=== PATIENT | female | born 1985 | race Caucasian/White ===

== ENCOUNTER 2019-11-27 15:15 | Outpatient (CLI) | payer OTHER, SELFPAY ==
[2019-12-02 04:30] LABS: FSH 2.6 mIU/mL (***); LH 3.2 mIU/mL (***); Progesterone 5.5 ng/mL (***)
== END 2019-11-27 15:16 | disposition home or self-care (01) ==
PROVIDERS: PCP Family Medicine; Visit Provider Obstetrics & Gynecology
DX: N92.6 Irregular menstruation, unspecified (principal)
CPT/HCPCS: 36415; 83001; 83002; 84144

== ENCOUNTER 2019-12-20 17:13 | Emergency (ER) | payer OTHER, SELFPAY ==
--- NOTE | ~2019-12-20 | XR_ITS ---
EXAMINATION: XR chest 1V portable INDICATION: Cough and headache, COVID 19 TECHNIQUE: Portable AP chest at 1741 hours COMPARISON: 05/25/2015 FINDINGS: The lungs are free of acute opacities. There is no pleural effusion or pneumothorax. The ca rdiomediastinal silhouette is normal. Surgical clips in the right upper quadrant are likely from prio r cholecystectomy. IMPRESSION: 1. No acute cardiopulmonary abnormality. Reviewed, dictated and finalized at location A.
--- NOTE | 2019-12-20 17:27 | ECG_ITS ---
Measurements Intervals [place] Rate: 82 P: 41 SD: 147 QRS: 27 QRSD: 82 T: 16 QT: 372 QTc: 435 Interpretive Statements SINUS RHYTHM POSSIBLE LEFT ATRIAL ENLARGEMENT BORDERLINE T WAVE ABNORMALITY- INFERIOR LEADS BORDERLINE ECG Electronically Signed On 12-20-2019 20:11:29 CDT by Phong Romero D.O.
[2019-12-20 17:37] VITALS: BP 123/71; PULSE 89; RESP 22; TEMP 37.8; O2SAT 95
[2019-12-20 17:41] VITALS: PULSE 86; O2SAT 96
--- NOTE | 2019-12-20 17:50 | ED.GENADULT ---
HPI - General Adult General Chief complaint: Shortness of Breath/Dyspnea Stated complaint: COVID Positive, short of breath. Time Seen by Provider: 12/20/19 17:26 Source: patient History of Present Illness HPI narrative: Patient is a 34 y/o female complaining of mild shortness of breath since yesterday. She states that exertion like walking upstairs aggravates her SOB. She also started to have a cough since yesterday. She had headache, light-headedness starting 1 week ago. She had intermittent fever up to 100.7, but no fever today. Of note, she tested positive for COVID 2 days ago. Related Data Home Medications Medication Instructions Recorded Confirmed levonorgestrel 20 mcg/24 hours (5 1 device I-UTERINE ONCE 04/02/19 11/24/19 yrs) 52 mg intrauterine device Allergies Allergy/AdvReac Type Severity Reaction Status Date / Time No Known Allergies Allergy Verified 12/20/19 17:36 Review of Systems Constitutional: Constitutional: Reports chills, Reports fever(s), Reports headache(s) and Reports weakness Eyes: Eyes: Denies blurry vision ENT: Reports headache(s) and Denies neck pain Cardiovascular: Cardiovascular: Denies chest pain and Reports dyspnea Respiratory: Respiratory: Reports cough and Reports dyspnea Gastrointestinal: Gastrointestinal: Denies abdominal pain, Denies diarrhea, Denies nausea and Denies vomiting Genitourinary: Genitourinary: Denies hematuria and Denies dysuria Musculoskeletal: Musculoskeletal: Denies back pain and Denies neck pain Neurologic: Reports headache(s) and Reports weakness PMFSH Past Medical History Medical History Anxiety Benign essential HTN CARLITOS (generalized anxiety disorder) Hypothyroid Hypothyroidism (acquired) IUD (intrauterine device) in place Surgical History Surgical History Hx of cholecystectomy Family History Family History Grandparent Carcinoma of colon Other Diabetes mellitus Family history of elevated blood lipids Hypertension Social History Social History Social History: Smoking status: Never smoker Second hand tobacco smoke exposure: No Alcohol intake: never Substance use: never Substance use type: does not use Gender identity (if verbalized by the patient): Female Exam Const: General: no acute distress and well developed Orientation/consciousness: oriented to person, oriented to place, oriented to time and patient oriented x3 HENMT: Head: normocephalic Ears: external ears normal General nose exam: Normal external nose present Eyes: General: appearance normal, both eyes and all related structures Conjunctivae: conjunctivae normal Neck: Neck: normal visual inspection and full ROM Chest: Chest palpation & inspection: normal inspection of the chest and no tenderness Resp: Effort & Inspection: normal respiratory effort Auscultation: clear to auscultation bilaterally Cardio: Rate: regular rate Rhythm: regular rhythm GI: GI Palp: No abdominal tenderness and Yes Soft to palpation Skin: General skin exam: normal color and turgor normal Neuro: General: oriented to person, oriented to place, oriented to time and patient oriented x3 Cognition (Neuro): normal cognition Extrem: General: normal to inspection, full ROM and no pedal edema Psych: Appearance: grossly normal Mental Status: mental status grossly normal Affect: normal affect Course Vital Signs Vital signs: Vital Signs Temperature 37.8 C H 12/20/19 17:37 Pulse Rate 89 12/20/19 17:37 Respiratory Rate 22 H 12/20/19 17:37 Blood Pressure 123/71 12/20/19 17:37 Pulse Oximetry 95 12/20/19 17:37 Temperature 37.8 C H 12/20/19 17:37 Pulse Rate 82 12/20/19 19:05 Respiratory Rate 17 12/20/19 19:05 Blood Pressure 122/84 12/20/19 19:05 Pulse Oximetry 98 12/20/19 19:05
[2019-12-20 18:05] LABS: Basophils Percent Auto 0.2 % (0.2-1.2); Eosinophils Percent Auto 0.2 % (0-4.4); Hemoglobin 13.4 g/dL (12.0-15.0); Immature Granulocyte Absolute 0.02 K/mm3 (0.00-0.031); Immature Granulocyte Percent A 0.5 % (0-0.5); Lymphocytes Absolute Auto 1.31 K/mm3 (0.9-3.2); Mean Corpuscular HGB Conc 32.7 g/dl (32-36); Mean Corpuscular Hemoglobin 27.9 pg (26-34); Mean Corpuscular Volume 85.2 fl (80-100); Mean Platelet Volume 9.7 fl (7.4-10.4); Monocytes Absolute Auto 0.3 K/mm3 (0.1-0.6); Monocytes Percent Auto 6.6 % (2.6-8.5); Neutrophils Absolute Auto 2.5 K/mm3 (1.3-6.7); Neutrophils Percent Auto 60.5 % (45.5-73.1); Platelet Count Result 181 k/mm3 (150-375); Red Blood Count 4.81 M/mm3 (4.2-5.4); Red Cell Distribution Width 12.5 % (11.5-14.5); White Blood Count 4.1 K/mm3 (4.5-10.0)
[2019-12-20 18:17] LABS: Alanine Aminotransferase 51 U/L (4-35); Albumin Level 4.1 g/dL (3.5-5.1); Alkaline Phosphatase 99 U/L (38-126); Anion Gap 8 mmol/L (8-16); Aspartate Amino Transferase 56 U/L (14-36); Bilirubin,Total 0.4 mg/dL (0.2-1.3); Blood Urea Nitrogen 8 mg/dL (7-17); Calcium 8.4 mg/dL (8.4-10.2); Carbon Dioxide 31 mmol/L (22-30); Chloride 101 mmol/L (98-107); Estimated CRCL calculation 103 ml/min; Estimated Glomerular Filt Rate > 60; Glucose 101 mg/dL (65-105); Potassium 3.6 mmol/L (3.4-5.0); Sodium 140 mmol/L (137-145)
[2019-12-20 18:26] VITALS: BP 111/71; PULSE 89; RESP 17; O2SAT 95
[2019-12-20 18:56] LABS: Add Urine Microscopic? YES; Appearance Urine Clear (Clear); Bacteria Urine Trace /hpf; Bilirubin Urine Negative (Negative); Color Urine Yellow (Yellow); Glucose Urine UA Negative (Negative); Ketones Urine Negative (Negative); Leukocyte Esterase Ur 2+ LEU/UL (Negative); Mucus Urine Rare /lpf; Nitrate Urine Negative (Negative); Protein Urine Negative (Negative); Specific Grav Ur 1.014 (1.001-1.035); Squamous Epithelial Cell Urine Moderate /hpf (Few); Urobilinogen Urine Negative mg/dL (<2.0)
[2019-12-20 19:04] LABS: Blood Urine Negative (Negative)
[2019-12-20 19:05] VITALS: BP 122/84; PULSE 82; RESP 17; O2SAT 98
== END 2019-12-20 20:06 | disposition home or self-care (01) ==
PROVIDERS: Emergency Provider Emergency Medicine; PCP Family Medicine
DX: U07.1 COVID-19 (principal); R06.02 Shortness of breath; I10 Essential (primary) hypertension; F41.1 Generalized anxiety disorder; E03.9 Hypothyroidism, unspecified; Z97.5 Presence of (intrauterine) contraceptive device; R94.31 Abnormal electrocardiogram [ECG] [EKG]
CPT/HCPCS: 36415; 71045; 80053; 81001; 81025; 83605; 85025; 87040; 87086; 93005; 99283

== ENCOUNTER 2020-02-23 15:12 | Outpatient (CLI) | payer OTHER, SELFPAY | END 2020-02-23 15:13 | disposition home or self-care (01) | PROVIDERS: PCP Family Medicine; Visit Provider Family Medicine | DX: E03.9 Hypothyroidism, unspecified (principal) | CPT/HCPCS: 36415; 84439; 84443; 84480 ==

== ENCOUNTER 2021-01-06 08:41 | Outpatient (CLI) | payer OTHER, SELFPAY ==
[2021-01-06 10:29] LABS: Basophils Percent Auto 0.6 % (0.2-1.2); Eosinophils Absolute Auto 0.1 K/mm3 (0-0.3); Eosinophils Percent Auto 0.9 % (0-4.4); Hematocrit 44.1 % (37.0-47.0); Hemoglobin 14.6 g/dL (12.0-15.0); Immature Granulocyte Absolute 0.02 K/mm3 (0.00-0.031); Immature Granulocyte Percent A 0.3 % (0-0.5); Lymphocytes Absolute Auto 2.17 K/mm3 (0.9-3.2); Lymphocytes Percent Auto 33.2 % (18.3-44.2); Mean Corpuscular HGB Conc 33.1 g/dl (32-36); Mean Corpuscular Volume 87.5 fl (80-100); Mean Platelet Volume 9.9 fl (7.4-10.4); Monocytes Absolute Auto 0.4 K/mm3 (0.1-0.6); Monocytes Percent Auto 5.5 % (2.6-8.5); Neutrophils Absolute Auto 3.9 K/mm3 (1.3-6.7); Neutrophils Percent Auto 59.5 % (45.5-73.1); Platelet Count Result 251 k/mm3 (150-375); Red Blood Count 5.04 M/mm3 (4.2-5.4); Red Cell Distribution Width 12.5 % (11.5-14.5); White Blood Count 6.5 K/mm3 (4.5-10.0)
[2021-01-06 10:46] LABS: Alanine Aminotransferase 19 U/L (4-35); Albumin Level 4.9 g/dL (3.5-5.1); Alkaline Phosphatase 84 U/L (38-126); Anion Gap 8 mmol/L (8-16); Aspartate Amino Transferase 27 U/L (14-36); Bilirubin,Total 0.4 mg/dL (0.2-1.3); Blood Urea Nitrogen 16 mg/dL (7-17); Calcium 9.4 mg/dL (8.4-10.2); Carbon Dioxide 33 mmol/L (22-30); Chloride 97 mmol/L (98-107); Cholesterol 230 mg/dL (0-200); Estimated Glomerular Filt Rate > 60; Glucose 97 mg/dL (65-110); HDL Direct 50 mg/dL; Potassium 3.5 mmol/L (3.4-5.0); Sodium 138 mmol/L (137-145); Triglycerides 238 mg/dL (<150)
[2021-01-06 10:57] LABS: LDL Cholesterol Direct 120 mg/dL
[2021-01-06 11:45] LABS: Free T4 Free Thyroxine 1.08 ng/mL (0.78-2.19)
== END 2021-01-06 08:42 | disposition home or self-care (01) ==
PROVIDERS: PCP Family Medicine; Visit Provider Physician Assistant
DX: E03.9 Hypothyroidism, unspecified (principal); I10 Essential (primary) hypertension; Z13.220 Encounter for screening for lipoid disorders
CPT/HCPCS: 36415; 80053; 80061; 84439; 84443; 85025

== ENCOUNTER 2021-05-22 11:17 | Outpatient (CLI) | payer OTHER, SELFPAY ==
--- NOTE | ~2021-05-22 | US_ITS ---
EXAMINATION: US breast RT limited HISTORY: Palpable lump of the outer right breast TECHNIQUE: Limited right breast ultrasound was performed. FINDINGS: There is no evidence of focal abnormal cystic or solid mass in the vicinity of the reported palpable abnormality of concern. IMPRESSION: No specific sonographic correlate is identified for the reported palpable abnormality of concern. Fur ther evaluation at this time should be based on clinical assessment. Continued follow-up physical exa mination is recommended. BI-RADS Category 1: Negative Reviewed, dictated and finalized at location A. [employer] IMPRESSION: No specific sonographic correlate is identified for the reported palpable abnor mality of concern. Further evaluation at this time should be based on clinical assessment. Continued follow-up physical examination is recommended. BI-RADS Category 1: Negative
== END 2021-05-22 11:18 | disposition home or self-care (01) ==
PROVIDERS: PCP Family Medicine; Visit Provider Obstetrics & Gynecology
DX: R92.8 Other abnormal and inconclusive findings on diagnostic imaging of breast (principal)
CPT/HCPCS: 76642

== ENCOUNTER 2022-07-31 18:33 | Emergency (ER) | payer OTHER, SELFPAY ==
--- NOTE | ~2022-07-31 | CT_ITS ---
EXAMINATION: CT abdomen pelvis wo con DATE: 07/31/2022 21:02 INDICATION: pyelo vs kidney stone TECHNIQUE: Computed tomography (CT) of the abdomen and pelvis was performed without intravenous contr ast. Automated exposure control and iterative reconstruction technique were employed. The dose-length product was 747.18 mGy-cm. COMPARISON: 02/07/2019. FINDINGS: Lower thorax: Unremarkable Liver: Normal. Biliary/Gallbladder: Gallbladder is absent. No bile duct dilation. Pancreas: No mass or duct dilation. Spleen: Normal. Adrenals:No mass. Kidneys: No mass, stone, or hydronephrosis. GI tract: No small or large bowel dilation. Normal appendix. Mesentery/Peritoneum: No ascites, mass, or free air. Prominent lymph nodes throughout the mesentery. Retroperitoneum: No mass. Pelvis: 2.4 cm left ovarian cyst. IUD, in good position. Partially distended urinary bladder with wal l thickening. Soft Tissues: Soft tissues and body wall unremarkable. Bones: No acute osseous finding. IMPRESSION: Bladder wall thickening, which may be secondary to inadequate distention or cystitis. Otherwise, no a cute process detected in the abdomen or pelvis. Specifically there is no CT evidence of obstructive u ropathy. Reviewed, dictated and finalized at location K. IMPRESSION: Bladder wall thickening, which may be secondary to inadequate distention or cys titis. Otherwise, no acute process detected in the abdomen or pelvis. Specifica lly there is no CT evidence of obstructive uropathy.
[2022-07-31 18:51] VITALS: BP 150/85; PULSE 101; RESP 16; TEMP 36.7; O2SAT 97
[2022-07-31 19:39] LABS: Basophils Absolute Auto 0.1 K/mm3 (0.0-0.1); Basophils Percent Auto 0.5 % (0.2-1.2); Eosinophils Absolute Auto 0.1 K/mm3 (0-0.3); Eosinophils Percent Auto 0.6 % (0-4.4); Hematocrit 42.2 % (37.0-47.0); Hemoglobin 14.2 g/dL (12.0-15.0); Immature Granulocyte Absolute 0.05 K/mm3 (0.00-0.031); Immature Granulocyte Percent A 0.3 % (0-0.5); Lymphocytes Absolute Auto 3.04 K/mm3 (0.9-3.2); Lymphocytes Percent Auto 20.9 % (18.3-44.2); Mean Corpuscular HGB Conc 33.6 g/dl (32-36); Mean Corpuscular Hemoglobin 28.9 pg (26-34); Mean Corpuscular Volume 85.9 fl (80-100); Mean Platelet Volume 9.2 fl (7.4-10.4); Monocytes Absolute Auto 0.8 K/mm3 (0.1-0.6); Monocytes Percent Auto 5.7 % (2.6-8.5); Neutrophils Absolute Auto 10.5 K/mm3 (1.3-6.7); Platelet Count Result 287 k/mm3 (150-375); Red Blood Count 4.91 M/mm3 (4.2-5.4); Red Cell Distribution Width 13.1 % (11.5-14.5); White Blood Count 14.6 K/mm3 (4.5-10.0)
[2022-07-31 19:48] LABS: Alanine Aminotransferase 27 U/L (6-35); Albumin Level 4.9 g/dL (3.5-5.1); Alkaline Phosphatase 88 U/L (38-126); Anion Gap 9 mmol/L (8-16); Aspartate Amino Transferase 28 U/L (14-36); Bilirubin,Total 0.6 mg/dL (0.2-1.3); Blood Urea Nitrogen 13 mg/dL (7-17); Calcium 9.3 mg/dL (8.4-10.2); Carbon Dioxide 34 mmol/L (22-30); Chloride 95 mmol/L (98-107); Estimated CRCL calculation 105 ml/min; Estimated Glomerular Filt Rate > 60; Glucose 100 mg/dL (65-110); Potassium 2.9 mmol/L (3.4-5.0); Sodium 138 mmol/L (137-145)
[2022-07-31 20:25] LABS: Appearance Urine Clear (Clear); Bacteria Urine 1+ /hpf; Bilirubin Urine Negative (Negative); Blood Urine 2+ (Negative); Color Urine Yellow (Yellow); Glucose Urine UA Negative (Negative); Ketones Urine Negative (Negative); Leukocyte Esterase Ur 1+ LEU/UL (Negative); Need Manual Microscopic Reviewed; Nitrate Urine Negative (Negative); Non Pathogenic Casts 0-2; Protein Urine 3+ mg/dL (Negative); RBC Urine >100 /hpf (0-2); Squamous Epithelial Cell Urine Occasional /hpf (Few); Urobilinogen Urine 0.2 mg/dL (<2.0); WBC Urine >100 /hpf
[2022-07-31 20:30] LABS: Add Urine Microscopic? YES
[2022-07-31] MEDS: POTASSIUM CHLORIDE 20 MEQ PACKET (FOR LIQUID) 40 MEQ PO (21:10)
[2022-07-31 21:14] VITALS: BP 123/91; PULSE 87; RESP 15; O2SAT 96
--- NOTE | 2022-07-31 21:16 | ED.GENADULT ---
HPI - General Adult General Chief complaint: Urogenital-Female Stated complaint: kidney stone possibly Time Seen by Provider: 07/31/22 20:48 Source: patient Mode of arrival: ambulatory Limitations: no limitations History of Present Illness HPI narrative: 36-year-old otherwise healthy here with complaints of sudden onset of lower abdominal pain started few hours ago. She is states when she used bathroom she noticed some blood in her urine. She states by the time she came to the ER her symptoms have much subsided. She denies any nausea, fever or chills. No previous history of kidney stones or kidney infection. He states she has very minimal pain in the lower abdomen. Onset (ago): hour(s) (2) Radiation: abdomen (Lower abdomen) Severity: moderate Severity scale (1-10): 1 Quality: aching Pain Consistency: now resolved Relieving factors: none Exacerbating factors: none Associated symptoms: denies other symptoms Related Data Home Medications Medication Instructions Recorded Confirmed levonorgestrel 21 mcg/24 hours (8 1 device intrauterine ONCE 04/02/19 02/13/22 yrs) 52 mg intrauterine device (Mirena) multivitamin (Daily Multi-Vitamin 1 tablet PO DAILY 04/11/21 02/13/22 tablet) Allergies Allergy/AdvReac Type Severity Reaction Status Date / Time No Known Allergies Allergy Verified 07/31/22 20:49 Review of Systems Review of Systems: All systems reviewed & are unremarkable except as noted in HPI and below Constitutional: Constitutional: Reports no additional constitutional complaints Eyes: Eyes: Reports no additional eye complaints ENT: Reports system reviewed and no additional complaints, except as documented PMFSH Past Medical History Medical History Anxiety Benign essential HTN CARLITOS (generalized anxiety disorder) Hypothyroid Hypothyroidism (acquired) IUD (intrauterine device) in place Surgical History Surgical History Hx of cholecystectomy Family History Family History Grandparent Carcinoma of colon Other Diabetes mellitus Family history of elevated blood lipids Hypertension Social History Social History Social History: Smoking status: Never smoker Second hand tobacco smoke exposure: No Alcohol intake: never Substance use: never Substance use type: does not use Lack of Transportation: No Lack of Food: Never True Current Housing: I Have Housing Concerned About Future Housing: No Difficulty Paying Gas/Electric Bills: No Difficulty Paying for Meds: No Currently Unemployed: No Education: Master's Degree or Higher Difficulty w/ Childcare or Family Care: No Living arrangements: with family Occupation/Education: occupation Gender identity (if verbalized by the patient): Female Sexual Orientation (if Verbalized by the Patient): Straight or Heterosexual Course Vital Signs Vital signs: Vital Signs Temperature 36.7 C 07/31/22 18:51 Pulse Rate 101 H 07/31/22 18:51 Respiratory Rate 16 07/31/22 18:51 Blood Pressure 150/85 H 07/31/22 18:51 Pulse Oximetry 97 07/31/22 18:51 Oxygen Delivery Room Air 07/31/22 18:51 Temperature 36.7 C 07/31/22 18:51 Pulse Rate 87 07/31/22 21:14 Respiratory Rate 15 07/31/22 21:14 Blood Pressure 123/91 H 07/31/22 21:14 Pulse Oximetry 96 07/31/22 21:14 Oxygen Delivery Room Air 07/31/22 18:51 Medical Decision Making Vital Signs Vital Signs: Vital Signs Temperature 36.7 C 07/31/22 18:51 Pulse Rate 101 H 07/31/22 18:51 Respiratory Rate 16 07/31/22 18:51 Blood Pressure 150/85 H 07/31/22 18:51 Pulse Oximetry 97 07/31/22 18:51 Oxygen Delivery Room Air 07/31/22 18:51 Temperature 36.7 C 07/31/22 18:51 Pulse Rate 87 07/31/22 21:14 Respiratory Rate 15 07/31/22 21:14 Bl
== END 2022-07-31 23:45 | disposition home or self-care (01) ==
LOC: ANHED 21:11
PROVIDERS: Emergency Provider Family Medicine; PCP Family Medicine
DX: N30.90 Cystitis, unspecified without hematuria (principal); I10 Essential (primary) hypertension; E03.9 Hypothyroidism, unspecified; Z97.5 Presence of (intrauterine) contraceptive device; Z90.49 Acquired absence of other specified parts of digestive tract
CPT/HCPCS: 36415; 74176; 80053; 81001; 81025; 85025; 87086; 99284; A9270

== ENCOUNTER 2023-05-10 08:30 | Emergency (ER) | payer OTHER, SELFPAY ==
[2023-05-10 08:39] VITALS: BP 138/88; PULSE 98; RESP 16; O2SAT 98
--- NOTE | 2023-05-10 08:54 | ED.URI ---
HPI - URI/Sore Throat General Chief Complaint: Upper Respiratory Infection Stated Complaint: SORE THROAT Time Seen by Provider: 05/10/23 08:54 History of Present Illness HPI Narrative: [age] year old female presented for complaint of sore throat and fever. Onset yesterday. Temperature up to 101 last night. Denies cough, shortness breath, wheezing, nausea, diarrhea or lethargy. Related Data Home Medications Medication Instructions Recorded Confirmed levonorgestrel 21 mcg/24 hours (8 1 device intrauterine ONCE 04/02/19 05/10/23 yrs) 52 mg intrauterine device (Mirena) multivitamin (Daily Multi-Vitamin 1 tablet PO DAILY 04/11/21 05/10/23 tablet) Allergies Allergy/AdvReac Type Severity Reaction Status Date / Time No Known Allergies Allergy Verified 05/10/23 08:40 Review of Systems Review of Systems: CONSTITUTIONAL: reports body aches, fever EYES: Denies visual changes, redness, or discharge. ENT: reports sore throat Denies rhinorrhea, congestion, or otalgia. CARDIOVASCULAR: Denies chest pain, palpitations, or edema. RESPIRATORY: Denies dyspnea. GASTROINTESTINAL: Denies abdominal pain, nausea, vomiting, or diarrhea. SKIN: Denies rash, itching, or wounds. MUSCULOSKELETAL: Denies back pain, joint pain, or myalgia. NEUROLOGIC: Denies headache PMFSH Past Medical History Medical History Anxiety Benign essential HTN CARLITOS (generalized anxiety disorder) Hypothyroid Hypothyroidism (acquired) IUD (intrauterine device) in place Surgical History Surgical History Hx of cholecystectomy Family History Family History Grandparent Carcinoma of colon Other Diabetes mellitus Family history of elevated blood lipids Hypertension Social History Social History Social History: Smoking status: Never smoker Second hand tobacco smoke exposure: No Alcohol intake: never Substance use: never Substance use type: does not use Lack of Transportation: No Lack of Food: Never True Current Housing: I Have Housing Concerned About Future Housing: No Difficulty Paying Gas/Electric Bills: No Difficulty Paying for Meds: No Currently Unemployed: No Education: Master's Degree or Higher Difficulty w/ Childcare or Family Care: No Living arrangements: with family Occupation/Education: occupation Gender identity (if verbalized by the patient): Female Sexual Orientation (if Verbalized by the Patient): Straight or Heterosexual Exam Narrative: GENERAL: well-appearing, no acute distress. EYES: conjunctivae clear ENT: Mucous membranes moist. TMs pearly boland with normal light reflex bilaterally; no tragal tenderness. Oropharynx erythematous Tonsils enlarged with exudate. No drooling, no hoarseness, no trismus, uvula midline. No tripod positioning, hot potato voice, or soft palate swelling. NECK: Supple. bilateral anterior cervical lymphadenopathy CHEST: Clear to auscultation, breath sounds equal. No respiratory distress, speaks in full sentences. HEART: Regular rate and rhythm. No murmur heard. SKIN: Warm, dry, no rash. NEURO: Alert and oriented x3. Course Course Emergency Course: Patient is aware of diagnosis, understands and agrees to treatment plan. Anticipatory guidance given. Patient agrees to follow-up as directed and is aware of reasons to seek care at the emergency department. Portions of this record may have been created with voice recognition software Level of Care: Express Care Visit Vital Signs Vital signs: Vital Signs Pulse Rate 98 05/10/23 08:39 Respiratory Rate 16 05/10/23 08:39 Blood Pressure 138/88 05/10/23 08:39 Pulse Oximetry 98 05/10/23 08:39 Oxygen Delivery Room Air 05/10/23 08:39 Pulse Rate 98 05/10/23 08:39 Respiratory Rate 16 05/10/23
== END 2023-05-10 09:00 | disposition home or self-care (01) ==
PROVIDERS: Emergency Provider Nurse Practitioner Family; PCP Family Medicine
DX: J02.0 Streptococcal pharyngitis (principal); I10 Essential (primary) hypertension; E03.9 Hypothyroidism, unspecified; F41.1 Generalized anxiety disorder
CPT/HCPCS: 36415; 80053; 80061; 84439; 84443; 84481; 85025; 87880; 99213; G0463

== ENCOUNTER 2023-05-10 09:03 | Outpatient (CLI) | payer OTHER, SELFPAY ==
[2023-05-10 17:50] LABS: Basophils Absolute Auto 0.1 K/mm3 (0.0-0.1); Basophils Percent Auto 0.5 % (0.2-1.2); Eosinophils Absolute Auto 0.9 K/mm3 (0-0.3); Eosinophils Percent Auto 7.4 % (0-4.4); Hematocrit 42.9 % (37.0-47.0); Hemoglobin 14.3 g/dL (12.0-15.0); Immature Granulocyte Absolute 0.03 K/mm3 (0.00-0.031); Immature Granulocyte Percent A 0.2 % (0-0.5); Lymphocytes Percent Auto 8.9 % (18.3-44.2); Mean Corpuscular HGB Conc 33.3 g/dl (32-36); Mean Corpuscular Hemoglobin 28.5 pg (26-34); Mean Corpuscular Volume 85.5 fl (80-100); Mean Platelet Volume 9.8 fl (7.4-10.4); Monocytes Absolute Auto 0.7 K/mm3 (0.1-0.6); Monocytes Percent Auto 5.4 % (2.6-8.5); Neutrophils Absolute Auto 9.6 K/mm3 (1.3-6.7); Neutrophils Percent Auto 77.6 % (45.5-73.1); Platelet Count Result 268 k/mm3 (150-375); Red Blood Count 5.02 M/mm3 (4.2-5.4); Red Cell Distribution Width 13.1 % (11.5-14.5); White Blood Count 12.4 K/mm3 (4.5-10.0)
[2023-05-10 18:03] LABS: Free T4 Free Thyroxine 1.12 ng/mL (0.78-2.19)
[2023-05-10 18:06] LABS: Alanine Aminotransferase 22 U/L (6-35); Albumin Level 4.6 g/dL (3.5-5.1); Alkaline Phosphatase 109 U/L (38-126); Anion Gap 10 mmol/L (8-16); Aspartate Amino Transferase 45 U/L (14-36); Bilirubin,Total 0.7 mg/dL (0.2-1.3); Blood Urea Nitrogen 14 mg/dL (7-17); Calcium 9.5 mg/dL (8.4-10.2); Carbon Dioxide 30 mmol/L (22-30); Chloride 96 mmol/L (98-107); Cholesterol 201 mg/dL (0-200); Estimated Glomerular Filt Rate > 60; Glucose 95 mg/dL (65-110); HDL Direct 45 mg/dL; Potassium 3.1 mmol/L (3.4-5.0); Sodium 136 mmol/L (137-145); Triglycerides 207 mg/dL (<150)
[2023-05-10 18:15] LABS: LDL Cholesterol Direct 103 mg/dL
[2023-05-10 18:37] LABS: Thyroid Stimulating Hormone 0.816 uIU/mL (0.465-4.680)
[2023-05-15 06:37] LABS: Triiodothyronine T3 Free 2.9 pg/mL (2.3-4.2)
== END 2023-05-10 09:04 | disposition home or self-care (01) ==
LOC: ANHGOSHLAB 09:04
PROVIDERS: PCP Family Medicine; Visit Provider Physician Assistant
DX: E03.9 Hypothyroidism, unspecified (principal); I10 Essential (primary) hypertension; R03.0 Elevated blood-pressure reading, without diagnosis of hypertension; Z13.220 Encounter for screening for lipoid disorders
CPT/HCPCS: 36415; 80053; 80061; 84439; 84443; 84481; 85025

== ENCOUNTER 2024-02-02 09:20 | Emergency (ER) | payer OTHER, SELFPAY ==
[2024-02-02 09:26] VITALS: BP 132/86; PULSE 94; RESP 16; TEMP 36.6; O2SAT 99
--- NOTE | 2024-02-02 09:40 | ED_ITS ---
HPI - URI/Sore Throat General Chief Complaint: Upper Respiratory Infection Stated Complaint: Sinus Infection Symptoms Time Seen by Provider: 02/02/24 09:27 Source: patient and RN notes reviewed Mode of arrival: ambulatory Limitations: no limitations History of Present Illness HPI Narrative: Patient presents today complaining of a 7 day history of postnasal drip, nasal congestion and sinus pressure, headache, cough, hoarse voice, right ear discomfort, and occasional shortness of breath with exertion. Denies fever or chest pain. She has tried Advil cold and Sinus and ibuprofen with some mild relief. Related Data Home Medications Medication Instructions Recorded Confirmed levonorgestrel 21 mcg/24 hr (up to 1 device intrauterine ONCE 04/02/19 02/02/24 8 years) 52 mg intrauterine device (Mirena) multivitamin (Daily Multi-Vitamin 1 tablet PO DAILY 04/11/21 02/02/24 tablet) Allergies Allergy/AdvReac Type Severity Reaction Status Date / Time No Known Allergies Allergy Verified 02/02/24 09:28 Review of Systems Review of Systems: CONSTITUTIONAL: Denies body aches, fever, chills, or sweats. EYES: Denies visual changes, redness, or discharge. ENT: Denies rhinorrhea,sore throat. + congestion, right ear pain, hoarseness sinus pressure, postnasal drip CARDIOVASCULAR: Denies chest pain, palpitations, or edema. RESPIRATORY: +, shortness of breath with exertion GASTROINTESTINAL: Denies abdominal pain, nausea, vomiting, or diarrhea. GENITOURINARY: Denies dysuria or hematuria. SKIN: Denies rash, itching, or wounds. MUSCULOSKELETAL: Denies back pain, joint pain, or myalgia. NEUROLOGIC: Denies headache, numbness, tingling, or weakness. PSYCH: Denies depression or anxiety. [facility] Past Medical History Medical History (Updated 02/02/24 @ 09:43 by Rahel Carias, JESSENIA, JUSTINA) Anxiety Benign essential HTN CARLITOS (generalized anxiety disorder) Hypothyroid Hypothyroidism (acquired) IUD (intrauterine device) in place Surgical History Surgical History Hx of cholecystectomy Family History Family History Grandparent Carcinoma of colon Other Diabetes mellitus Family history of elevated blood lipids Hypertension Social History Social History Social History: Smoking status: Never smoker Second hand tobacco smoke exposure: No Alcohol intake: never Substance use: never Substance use type: does not use Do You Feel Safe in your Home?: Yes Lack of Transportation: No Lack of Food: Never True Current Housing: I Have Housing Concerned About Future Housing: No Difficulty Paying Gas/Electric Bills: No Difficulty Paying for Meds: No Currently Unemployed: No Education: Master's Degree or Higher Difficulty w/ Childcare or Family Care: No Living arrangements: with family Occupation/Education: occupation 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 Please see nursing chart for further information. There is no relevant family history pertinent to the presenting complaint Exam Narrative: GENERAL: Mildly ill-appearing, well-nourished, and in no acute distress. HEAD: Normocephalic, atraumatic. EYES: EOMI. No redness or drainage. Conjunctivae normal. ENT: Mucous membranes pink and moist. Nares congested. No rhinorrhea. Bilateral nasal turbinates are slightly edematous. TMs normal bilaterally. Throat normal with small amount of postnasal drainage. Uvula midline. NECK: Normal AROM. Supple. No lymphadenopathy. CHEST: No respiratory distress. Clear to auscultation. HEART: Regular rate and rhythm. No murmur appreciated. EXTREMITIES: Normal range of motion. No edema. SKIN: Warm, dry, no rash. Capillary refill normal. Normal skin turgor. NEURO: No focal deficits. Alert and oriented x3. Gait steady. PSYCH: Normal affect. No signs of depression or anxiety. Course Course Level of Care: Express Care Visit Vital Signs Vital signs: Vital Signs Temperature 98 F 02/02/24 09:26 Pulse Rate 94 02/02/24 09:26 Respiratory Rate 16 02/02/24 09:26 Blood Pressure 132/86 02/02/24 09:26 Pulse Oximetry 99 02/02/24 09:26 Temperature 98 F 02/02/24 09:26 Pulse Rate 94 02/02/24 09:26 Respiratory Rate 16 02/02/24 09:26 Blood Pressure 132/86 02/02/24 09:26 Pulse Oximetry 99 02/02/24 09:26 Oxygen Delivery Room Air 02/02/24 09:29 Reviewed MDM - URI/Sore Throat MDM Narrative Medical decision making narrative: Symptoms likely viral in etiology. Discussed [id number] medication use and duration of illness. Patient will be treated with a short course of prednisone. She declines prescriptions for cough medicine or an albuterol inhaler. Anticipatory guidance given. Differential Diagnosis Differential diagnosis: Likely upper respiratory infection, otitis media, sinusitis, viral infection and bronchitis Critical Care Time Critical Care Time Critical Care Time: No Discharge Plan Discharge Clinical Impression: Upper respiratory infection Qualifiers: URI type: unspecified URI Qualified Code(s): J06.9 - Acute upper respiratory infection, unspecified Patient Disposition: Home, Self-Care Condition: Stable Instructions: Upper Respiratory Infection (DC) Additional Instructions: Your symptoms are likely due to a viral illness, which is not treated with antibiotics. Virus symptoms can last for up to 7-14 days. Take Tylenol or ibuprofen for pain or fever. Continue decongestant. Consider starting an intranasal steroid such as Flonase. Humidifiers can be helpful in your bedroom at night. Rest and stay hydrated. Follow up with your PCP in 5-7 days if symptoms are not improving. Go to the ER immediately if you develop shortness of breath, difficulty swallowing, development of new fever, or any other concerning symptoms. Your blood pressure was elevated above 120/80 today at Urgent Care. This puts you above the threshold for follow up. Please schedule a followup visit with your personal physician as soon as possible, for further evaluation and treatment. Even blood pressure exceeding 120/80 may indicate pre-hypertension. Prescriptions: New prednisone 50 mg tablet 50 mg PO DAILY 5 Days Qty: 5 0RF No Action Mirena 20 mcg/24 hours (5 yrs) 52 mg intrauterine device 1 device I-UTERINE ONCE multivitamin [Daily Multi-Vitamin] Tablet 1 tablet PO DAILY potassium chloride 10 mEq tablet extended release 10 meq PO DAILY Qty: 90 4RF levothyroxine 50 mcg tablet 50 mcg PO QAM Qty: 90 4RF Rx Instructions: Take 1 tab PO daily except skip dose on Saturday chlorthalidone 25 mg tablet 25 mg PO DAILY Qty: 90 4RF escitalopram oxalate 10 mg tablet 10 mg PO DAILY Qty: 90 4RF Follow-up/Referrals: Kailey Mckeon MD [Primary Care Provider] - Time of Disposition: 09:44
== END 2024-02-02 09:46 | disposition home or self-care (01) ==
PROVIDERS: Emergency Provider Nurse Practitioner; PCP Family Medicine
DX: J06.9 Acute upper respiratory infection, unspecified (principal); I10 Essential (primary) hypertension; E03.9 Hypothyroidism, unspecified
CPT/HCPCS: 99213; G0463

== ENCOUNTER 2024-02-27 13:47 | Outpatient (CLI) | payer OTHER, SELFPAY ==
--- NOTE | ~2024-02-27 | XR_ITS ---
EXAMINATION: XR chest 2V 02/27/2024 13:59 INDICATION: Cough for one week PROCEDURE: 2 view chest COMPARISON: 12/20/2019 FINDINGS: The lungs are clear. The cardiomediastinal silhouette is within normal limits. There are no pleural effusions. There is no pneumothorax suspected. IMPRESSION: 1: NO ACUTE CARDIOPULMONARY DISEASE. Reviewed, dictated and finalized at location B. [employer]
== END 2024-02-27 13:48 | disposition home or self-care (01) ==
PROVIDERS: PCP Family Medicine; Visit Provider Student in an Organized Health Care Education/Training Program
DX: R05.9 Cough, unspecified (principal)
CPT/HCPCS: 71046

== ENCOUNTER 2024-06-02 07:33 | Outpatient (CLI) | payer OTHER, SELFPAY ==
--- OUTSIDE RECORDS SUMMARY | 2024-06-02 07:37 | XMS_ITS | Clinical Summary ---
Author Organization 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 Active NORGESTIMATE-ETH INYL ESTRADIOL (TRINESSA, 28, ORAL) Take by mouth. Active escitalopram oxalate (LEXAPRO) 10 mg tablet Take 10 mg by mouth daily. Active Active Problems No known active problems Family History Medical History Relation Name Comments Healthy Father Healthy Mother Relation Name Status Comments Father Alive Mother Alive Social History Tobacco Use Types Packs/Day Years Used Date Smoking Tobacco: Never Alcohol Use Standard Drinks/Week Comments No 0 (1 standard drink = 0.6 oz pur e alcohol) Comments No Sex and Gender Information Value Date Recorded Sex Assigned at Not on file Legal Sex Female 4:27 PM [employer]IST[employer] Gender Identity Not on file Sexual Orientation Not on file Last Filed Vital Signs Vital Sign Reading Time Taken Comments Blood Pressure 130/79 02/27/2016 10:00 AM [employer] ASSISTANT Pulse 86 02/27/2016 10:00 AM [employer] ASSISTANT Temperature 36.6 C (97.8 F) 02/27/2016 8:09 AM [employer] ASSISTANT Respiratory Rate 16 02/27/2016 10:00 AM [employer] ASSISTANT Oxygen Saturation 98% 02/27/2016 10:00 AM [employer] ASSISTANT Inhaled Oxygen Concentration - - Weight 88.5 kg (195 lb) 02/27/2016 8:09 AM [employer]ILD[employer] ASSISTANT Height 162.6 cm (5' 4 ) 02/27/2016 8:09 AM [employer] ASSISTANT Body Mass Index 33.47 02/27/2016 8:09 AM [employer] ASSISTANT Plan of Treatment Health Maintenance Due Date Last Done Comments DTAP/TDAP/TD VACCINES (1 - Tdap) 2005 HEPATITIS B VACCINES (1 of 3 - 19+ 3-dose series) 2005 CERVICAL CANCER SCREENING 2016 INFLUENZA VACCINE (#1) 2023 HPV VACCINES Aged Out No longer eligi ble based on patient's age to complete this topic PNEUMOCOCCAL VACCINE 0-49 YEARS Aged Out No longer eligible based on patient's age to complete this topic Insurance [facility]
--- OUTSIDE RECORDS SUMMARY | 2024-06-02 07:37 | XMS_ITS | Clinical Summary ---
Author Organization [facility] [employer] Address [address] [place] [address] Care Team Providers Care Typing Teacher Name Role Phone Kailey Mckeon MD Primary Care Provider + Source Comments [facility] [employer],non-owned Affiliates and Associated Physician Practices is amultiple site organization consisting of ambulatory clinics and hospital sitesin [place], [place], [place] and [place]. This disclosure is being madepursuant to the Care Everywhere program and may not contain all information available regarding this patient. Last updated 17.[facility] [employer] Allergies No known active allergies Medications * Be aware that medications may not be up to date on this document. Alwaysverify current medications with the patient. Medication Sig Dispensed Refills Start Date End Date Status LEVOTHYROXINE SODIUM PO Active Escitalopram Oxalate (LEXAPRO PO) Active levonorgestrel (MIRENA, 52 MG,) 20 MCG/24HR IUD 1 device by Intrauterine route as directed Active Active Problems Problem Noted Date Diagnosed Date Hypothyroid 12/22/2015 Family History Medical History Relation Name Comments Heart Disease Father Relation Name Status Comments Brother 1 Alive Brother 2 Alive Father Alive Mother Alive Social History Tobacco Use Types Packs/Day Years Used Date Smoking Tobacco: Never Smokeless Tobacco: Never Alcohol Use Standard Drinks/Week Comments No 0 (1 standard drink = 0.6 oz pure alcohol) ETOH approximately once per month Sex and Gender Information Value Date Recorded Sex Assigned at Not on file Gender Identity Not on file Sexual Orientation Not on file Last Filed Vital Signs Vital Sign Reading Time Taken Comments Blood Pressure 126/78 12/26/2018 4:05 PM CDT Pulse 81 12/26/2018 4:05 PM CDT Temperature 37 C (98.6 F) 12/26/2018 4:05 PM CDT Respiratory Rate 16 12/26/2018 4:05 PM CDT Oxygen Saturation 97% 12/26/2018 4:05 PM CDT Inhaled Oxygen Concentration - - Weight 93 kg (205 lb) 12/26/2018 4:05 PM CDT Height 162.6 cm (5' 4 ) 12/26/2018 4:05 PM CDT Body Mass Index 35.19 12/26/2018 4:05 PM CDT Plan of Treatment Health Maintenance Due Date Last Done Comments HIV SCREENING 2001 HEPATITIS C SCREENING 10/25/2004 DTAP/TDAP/TD VACCINES (1 - Tdap) 2005 HEPATITIS B VACCINE (1 of 3 - 19+ 3-dose series) 2005 COVID-19 VACCINE (1 - 2023-2 5 season) 2023 INFLUENZA VACCINE (#1) 2023 DEPRESSION SCREENING 03/25/2024 ZOSTER VACCINE (1 of 2) 2036 HIB VACCINE Aged Out No longer eligi ble based on patient's age to complete this topic HPV VACCINE Aged Out No longer eligi ble based on patient's age to complete this topic MENINGOCOCCAL (Group B) VACCINE Aged Out No longer eligible based on patient's age to complete this topic MENINGOCOCCAL VACCINE Aged Out No shanti deana eligible based on patient's age to complete this topic PNEUMOCOCCAL VACCINE Aged Out No long er eligible based on patient's age to complete this topic Care Teams Typing Teacher Relationship Specialty Start Date End Date Kailey Mckeon MD [address] [place] [id number] PCP - General Family Medicine 12/22/15
--- OUTSIDE RECORDS SUMMARY | 2024-06-02 07:37 | XMS_ITS | Referral Summary ---
Author Organization [facility] Address [address] [place] [address] Care Team Providers Care Combat Control Name Role Phone Kailey Mckeon MD Primary Care Provider + Source Comments [facility],non-owned Affiliates and Associated Physician Practices is amultiple site organization consisting of ambulatory clinics and hospital sitesin [place], [place], [place] and [place]. This disclosure is being madepursuant to the Care Everywhere program and may not contain all information available regarding this patient. Last updated 17.[facility] Allergies No known active allergies Medications * [...] Problem Noted Date Diagnosed Date Hypothyroid 12/22/2015 Social History Tobacco Use Types Packs/Day Years [...] 12/26/2018 4:05 PM CDT Plan of Treatment Not on file Care Teams Combat Control Relationship Specialty Start Date End Date Kailey Mckeon MD [address] [place] [address] PCP - General Family Medicine 12/22/15
--- OUTSIDE RECORDS SUMMARY | 2024-06-02 07:37 | XMS_ITS | Patient Health Summary ---
Author Organization [facility] [employer] Address [address] [place] [address] Care Team Providers Care Pharmacovigilance Scientist Name Role Phone Kailey Mckeon MD Primary Care Provider + Note from [facility],non-owned Affiliates and Associated Physician Practices is amultiple site organization consisting of ambulatory clinics and hospital sitesin [place], [place], [place] and [place]. This disclosure is being madepursuant to the Care Everywhere program and may not contain all information available regarding this patient. Last updated 17.[facility] Allergies No known active allergies Medications * Be aware that medications may not be up to date on this document. Alwaysverify current medications with the patient. * LEVOTHYROXINE SODIUM PO * Escitalopram Oxalate (LEXAPRO PO) * levonorgestrel (MIRENA, 52 MG,) 20 MCG/24HR IUD 1 device by Intrauterine route as directed Active Problems Problem Noted Date Diagnosed Date [...] Mass Index 35.19 12/26/2018 4:05 PM CDT Procedures * CULTURE RESPIRATORY UPPER(Performed 12/26/2018) Performed for Acute pharyngitis, unspecified etiology * STREP A SCREEN - POINT OF CARE (AMB) STL(Performed 12/26/2018) Performed for Acute pharyngitis, unspecified etiology * STREP A SCREEN - POINT OF CARE (AMB) STL(Performed 04/15/2016) Performed for Pharyngitis, streptococcal, acute * PULSE OXIMETRY - POINT OF CARE (AMB)(Performed 04/04/2016) Performed for Acute bronchitis, unspecified organism * STREP A SCREEN - POINT OF CARE (AMB) STL(Performed 12/22/2015) Performed for Tonsillitis Results * CULTURE RESPIRATORY UPPER (12/26/2018 4:25 PM CDT) Upper Respiratory Culture Final report [facility] ACCOUNT BILL Result 1 [facility] ACCOUNT BILL Comment:Routine respiratory nitin Microbiology ENTIRE THROAT (SURFACE REGION OF NECK) / Unknown 12/26/2018 4:25 PM CDT 12/26/2018 Narrative Resulting Agency Comment Lab [facility]: [facility] [address] [id number] Carlos Sauceda APRN-[facility] - MICROBIOLOG Y ORDERABLES [facility] ACCOUNT BILL [address] [place] [address] * STREP A SCREEN (12/26/2018 4:17 PM CDT) Only the most recent of3 resultswithin the time period is included. Strep A Rapid POCT Negative Negative Strep A Internal Control Present Lot # [id number] Expiration Date [id number] Throat ENTIRE THROAT (SURFACE REGION OF NECK) / Unknown 12/26/2018 4:17 PM CDT Carlos Sauceda NUMERICAL CONTROL NESTING OPERATOR-[facility] - POINT OF CA RE ORDERABLES * PULSE OXIMETRY - POINT OF CARE (AMB) (04/04/2016) Oximetry POCT 99% 0 - 100 % QC Verified Yes Yes Blood BLOOD SPECIMEN / Unknown 04/04/2016 Nery Alvarado NUMERICAL CONTROL NESTING OPERATOR-[facility] - POINT OF C ARE ORDERABLES Care Teams Pharmacovigilance Scientist Relationship Specialty Start Date End Date Kailey Mckeon MD [address] [place] [phone] PCP - General Family Medicine 12/22/15
[2024-06-02 08:03] LABS: Basophils Percent Auto 0.5 % (0.2-1.2); Eosinophils Absolute Auto 0.1 K/mm3 (0-0.3); Eosinophils Percent Auto 1.1 % (0-4.4); Hematocrit 43.9 % (37.0-47.0); Immature Granulocyte Absolute 0.03 K/mm3 (0.00-0.031); Immature Granulocyte Percent A 0.4 % (0-0.5); Lymphocytes Absolute Auto 2.43 K/mm3 (0.9-3.2); Lymphocytes Percent Auto 30.2 % (18.3-44.2); Mean Corpuscular HGB Conc 34.2 g/dl (32-36); Mean Corpuscular Hemoglobin 28.6 pg (26-34); Mean Corpuscular Volume 83.8 fl (80-100); Mean Platelet Volume 9.2 fl (7.4-10.4); Monocytes Absolute Auto 0.4 K/mm3 (0.1-0.6); Neutrophils Absolute Auto 5.1 K/mm3 (1.3-6.7); Neutrophils Percent Auto 62.8 % (45.5-73.1); Platelet Count Result 278 k/mm3 (150-375); Red Blood Count 5.24 M/mm3 (4.2-5.4); Red Cell Distribution Width 12.6 % (11.5-14.5)
[2024-06-02 08:12] LABS: Alanine Aminotransferase 15 U/L (6-35); Albumin Level 4.8 g/dL (3.5-5.1); Alkaline Phosphatase 87 U/L (38-126); Anion Gap 10 mmol/L (4-12); Aspartate Amino Transferase 19 U/L (14-36); Bilirubin,Total 0.6 mg/dL (0.2-1.3); Blood Urea Nitrogen 13 mg/dL (7-17); Calcium 9.5 mg/dL (8.4-10.2); Carbon Dioxide 29 mmol/L (22-30); Chloride 98 mmol/L (98-107); Cholesterol 194 mg/dL (0-200); Estimated Glomerular Filt Rate > 60; Glucose 98 mg/dL (65-110); HDL Direct 41 mg/dL; Potassium 3.3 mmol/L (3.4-5.0); Sodium 137 mmol/L (137-145); Triglycerides 283 mg/dL (<150)
[2024-06-02 08:25] LABS: LDL Cholesterol Direct 85 mg/dL
[2024-06-02 09:55] LABS: Free T3 3.85 pg/mL (2.32-6.09); Free T4 Free Thyroxine 1.33 ng/dL (0.78-2.19)
== END 2024-06-02 07:34 | disposition home or self-care (01) ==
LOC: ANHLAB 07:34
PROVIDERS: PCP Family Medicine; Visit Provider Student in an Organized Health Care Education/Training Program
DX: E07.9 Disorder of thyroid, unspecified (principal); E87.6 Hypokalemia; E03.9 Hypothyroidism, unspecified; I10 Essential (primary) hypertension; E78.5 Hyperlipidemia, unspecified
CPT/HCPCS: 36415; 80053; 80061; 84439; 84443; 84481; 85025